=== PATIENT | female | born 1985 | race Caucasian/White ===

== ENCOUNTER 2020-04-09 12:59 | Emergency (ER) | payer BC ==
[2020-04-09 13:50] LABS: Basophils # (A) 0.1 k/uL (0-0.2); Basophils % (A) 1 %; Eosinophils # (A) 0.2 k/uL (0-0.7); Eosinophils % (A) 3 %; HCT 40.1 % (34.0-46.0); HGB 13.8 gm/dL (11.4-16.0); Lymphocytes # (A) 2.2 k/uL (1.0-4.8); Lymphocytes % (A) 29 %; MCH 28.7 pg (25.0-35.0); MCHC 34.5 g/dL (31.0-37.0); MCV 83.1 fL (80.0-100.0); Mean Platelet Volume 6.6; Monocytes # (A) 0.4 k/uL (0-1.0); Monocytes % (A) 5 %; Neutrophils # (A) 4.6 k/uL (1.3-7.7); Neutrophils % (A) 60 %; Platelet Count 421 k/uL (150-450); RBC 4.82 m/uL (3.80-5.40); RDW 12.8 % (11.5-15.5); WBC 7.7 k/uL (3.8-10.6)
[2020-04-09 13:57] LABS: ALT 15 U/L (4-34); AST 22 U/L (14-36); African American GFR (CKD) >90 (>60 ml/min/1.73 sqM); Albumin 4.9 g/dL (3.5-5.0); Alkaline Phosphatase 71 U/L (38-126); Amylase 60 U/L (30-110); Anion Gap 7 mmol/L; Blood Urea Nitrogen 7 mg/dL (7-17); Calcium 9.6 mg/dL (8.4-10.2); Carbon Dioxide 24 mmol/L (22-30); Chloride 109 mmol/L (98-107); Glucose 99 mg/dL (74-99); Lipase 164 U/L (23-300); Non-African American GFR(CKD) >90 (>60 ml/min/1.73 sqM); Potassium 4.4 mmol/L (3.5-5.1); Sodium 140 mmol/L (137-145); Total Bilirubin 0.5 mg/dL (0.2-1.3); Total Protein 8.6 g/dL (6.3-8.2)
--- NOTE | 2020-04-09 14:08 | ED ---
Abdominal Pain HPI - General Source: patient Mode of arrival: ambulatory Limitations: no limitations <Lorene Andres - Last Filed: 04/09/20 15:24> <Norma Melara - Last Filed: 04/10/20 12:13> - General Chief Complaint: Abdominal Pain Stated Complaint: gallbladder pain Time Seen by Provider: 04/09/20 13:09 - History of Present Illness Initial Comments: 34-year-old female presenting today for chief complaint of right upper quadrant/epigastric abdominal pain. Patient states the past year she is been struggling with what she describes as gallbladder pain. She states she is scheduled for an MRCP with Dr. Lucero Sunday. Patient states that last night she was eating foods that are outside of her typical diet for her gallbladder she states she had more dairy products. Patient states the pain began around 2 AM the upper quadrant patient denies any associated nausea vomiting fevers with this pain but states sometimes she has associated nausea or vomiting. Patient denies black tarry stools or bloody stools. Patient denies a known history of peptic ulcer. Patient denies any chest pain shortness of breath. Deep inspiration. She denies any upper respiratory symptoms. Patient has no additional complaints upon arrival she appears nontoxic (Lorene Andres) - Related Data Home Medications Medication Instructions Recorded Confirmed Ibuprofen [Motrin Ib] 800 mg PO Q8H PRN 04/09/20 04/09/20 Omeprazole 20 mg PO DAILY 04/09/20 04/09/20 Allergies Allergy/AdvReac Type Severity Reaction Status Date / Time sulfamethoxazole AdvReac Nausea Verified 04/09/20 14:08 [From Bactrim] trimethoprim [From Bactrim] AdvReac Nausea Verified 04/09/20 14:08 Review of Systems ROS Other: All systems not noted in ROS Statement are negative. <Lorene Andres - Last Filed: 04/09/20 15:24> ROS Other: All systems not noted in ROS Statement are negative. <Norma Melara - Last Filed: 04/10/20 12:13> ROS Statement: Those systems with pertinent positive or pertinent negative responses have been documented in the HPI. Past Medical History Past Medical History: GERD/Reflux History of Any Multi-Drug Resistant Organisms: None Reported Past Surgical History: Adenoidectomy, Tonsillectomy Past Psychological History: Anxiety, Depression Smoking Status: Never smoker Past Alcohol Use History: None Reported Past Drug Use History: None Reported <Lorene Andres - Last Filed: 04/09/20 15:24> General Exam Limitations: no limitations <Lorene Andres - Last Filed: 04/09/20 15:24> - General Exam Comments Initial Comments: General: The patient is awake and alert, in no distress Eye: +3 mm pupils are equal, round and reactive to light, extra-ocular movements are intact. No nystagmus. There is normal conjunctiva bilaterally. No signs of icterus. Cardiovascular: There is a regular rate and rhythm. No murmur, rub or gallop is appreciated. Respiratory: Lungs are clear to auscultation, respirations are non-labored, breath sounds are equal. No wheezes, stridor, rales, or rhonchi. Gastrointestinal: Soft, non-distended, mild-moderate RUQ/epigastric tenderness, (-) murphys sign, abdomen without masses or organomegaly noted. There is no rebound or guarding present. Musculoskeletal: Normal ROM, no tenderness. Strength 5/5. Sensation intact. Pulses equal bilaterally 2+. Neurological: A&O x 3. CN II-XII intact grossly, There are no obvious motor or sensory deficits. Coordination appears grossly intact. Speech is normal. Skin: Skin is warm and dry and no rashes or lesions are noted. Psychiatric: Cooperative, appropriate mood & affect, normal judgment. (Lorene Andres) Course Vital Signs 04/09/20 04/09/20 13:01 15:04 Temperature 98.3 F 97.8 F Pulse Rate 98 78 Respiratory 18 16 Rate Blood Pressure 140/83 128/78 O2 Sat by Pulse 100 98 Oximetry Medical Decision Making - Lab Data Result diagrams: 04/09/20 13:28 04/09/20 13:28 <Lorene Andres - Last Filed: 04/09/20 15:24> - Lab Data Result diagrams: 04/09/20 13:28 04/09/20 13:28 <Norma Melara - Last Filed: 04/10/20 12:13> - Medical Decision Making RUQ pain/epigastric. pt has known GB disease. Ate more fatty foods than usual last night. Lipase (-). no labs concerning for biliary disease. pt ast/alt within reasonable limits. US gallstones no acute infectious findings. pain controlled. MRCP scheduled for sunday. recommended f/u with general surgery return for worsening pain. Discussed case wtih Ed Melara who is agreeable to care plan of discharge with PCP/general surgery f/u. (Lorene Andres) I was available for consultation in the emergency department. The history and physical exam were done by the midlevel provider. I was consulted for this patients care. I reviewed the case with the midlevel provider and based on their presentation of the patient, I agree with the assessment, medical decision making and plan of care as documented. Chart was dictated using [employer] dictation software. Attempts were made to correct any dictation errors however some typographical errors may persist. Patient was seen during a national state of emergency due to the Covid-19 pandemic. (Norma Melara) - Lab Data Lab Results 04/09/20 04/09/20 04/09/20 Range/Units 13:28 13:28 13:28 WBC 7.7 (3.8-10.6) k/uL RBC 4.82 (3.80-5.40) m/uL Hgb 13.8 (11.4-16.0) gm/dL Hct 40.1 (34.0-46.0) % MCV 83.1 (80.0-100.0) fL MCH 28.7 (25.0-35.0) pg MCHC 34.5 (31.0-37.0) g/dL RDW 12.8 (11.5-15.5) % Plt Count 421 (150-450) k/uL MPV 6.6 Neutrophils % 60 % Lymphocytes % 29 % Monocytes % 5 % Eosinophils % 3 % Basophils % 1 % Neutrophils # 4.6 (1.3-7.7) k/uL Lymphocytes # 2.2 (1.0-4.8) k/uL Monocytes # 0.4 (0-1.0) k/uL Eosinophils # 0.2 (0-0.7) k/uL Basophils # 0.1 (0-0.2) k/uL Sodium 140 (137-145) mmol/L Potassium 4.4 (3.5-5.1) mmol/L Chloride 109 H (98-107) mmol/L Carbon Dioxide 24 (22-30) mmol/L Anion Gap 7 mmol/L BUN 7 (7-17) mg/dL Creatinine 0.75 (0.52-1.04) mg/dL Est GFR (CKD-EPI)AfAm >90 (>60 ml/min/1.73 sqM) Est GFR (CKD-EPI)NonAf >90 (>60 ml/min/1.73 sqM) Glucose 99 (74-99) mg/dL Plasma Lactic Acid Domenic (0.7-2.0) mmol/L Calcium 9.6 (8.4-10.2) mg/dL Total Bilirubin 0.5 (0.2-1.3) mg/dL AST 22 (14-36) U/L ALT 15 (4-34) U/L Alkaline Phosphatase 71 (38-126) U/L Total Protein 8.6 H (6.3-8.2) g/dL Albumin 4.9 (3.5-5.0) g/dL Amylase 60 (30-110) U/L Lipase 164 (23-300) U/L Urine Color Yellow Urine Appearance Cloudy H (Clear) Urine pH 6.0 (5.0-8.0) Ur Specific Antonito 1.016 (1.001-1.035) Urine Protein Trace H (Negative) Urine Glucose (UA) Negative (Negative) Urine Ketones Negative (Negative) Urine Blood Large H (Negative) Urine Nitrite Negative (Negative) Urine Bilirubin Negative (Negative) Urine Urobilinogen <2.0 (<2.0) mg/dL Ur Leukocyte Esterase Large H (Negative) Urine RBC 1 (0-5) /hpf Urine WBC 7 H (0-5) /hpf Ur Squamous Epith Cells 6 H (0-4) /hpf Amorphous Sediment Rare H (None) /hpf Urine Bacteria Occasional H (None) /hpf Hyaline Casts 1 (0-2) /lpf Urine Mucus Occasional H (None) /hpf 04/09/20 Range/Units 13:28 WBC (3.8-10.6) k/uL RBC (3.80-5.40) m/uL Hgb (11.4-16.0) gm/dL Hct (34.0-46.0) % MCV (80.0-100.0) fL MCH (25.0-35.0) pg MCHC (31.0-37.0) g/dL RDW (11.5-15.5) % Plt Count (150-450) k/uL MPV Neutrophils % % Lymphocytes % % Monocytes % % Eosinophils % % Basophils % % Neutrophils # (1.3-7.7) k/uL Lymphocytes # (1.0-4.8) k/uL Monocytes # (0-1.0) k/uL Eosinophils # (0-0.7) k/uL Basophils # (0-0.2) k/uL Sodium (137-145) mmol/L Potassium (3.5-5.1) mmol/L Chloride (98-107) mmol/L Carbon Dioxide (22-30) mmol/L Anion Gap mmol/L BUN (7-17) mg/dL Creatinine (0.52-1.04) mg/dL Est GFR (CKD-EPI)AfAm (>60 ml/min/1.73 sqM) Est GFR (CKD-EPI)NonAf (>60 ml/min/1.73 sqM) Glucose (74-99) mg/dL Plasma Lactic Acid Domenic 0.8 (0.7-2.0) mmol/L Calcium (8.4-10.2) mg/dL Total Bilirubin (0.2-1.3) mg/dL AST (14-36) U/L ALT (4-34) U/L Alkaline Phosphatase (38-126) U/L Total Protein (6.3-8.2) g/dL Albumin (3.5-5.0) g/dL Amylase (30-110) U/L Lipase (23-300) U/L Urine Color Urine Appearance (Clear) Urine pH (5.0-8.0) Ur Specific Antonito (1.001-1.035) Urine Protein (Negative) Urine Glucose (UA) (Negative) Urine Ketones (Negative) Urine Blood (Negative) Urine Nitrite (Negative) Urine Bilirubin (Negative) Urine Urobilinogen (<2.0) mg/dL Ur Leukocyte Esterase (Negative) Urine RBC (0-5) /hpf Urine WBC (0-5) /hpf Ur Squamous Epith Cells (0-4) /hpf Amorphous Sediment (None) /hpf Urine Bacteria (None) /hpf Hyaline Casts (0-2) /lpf Urine Mucus (None) /hpf Disposition Is patient prescribed a controlled substance at d/c from ED?: No Time of Disposition: 14:32 <HussaintianaLorene Paramjit - Last Filed: 04/09/20 15:24> <Erin Melaraah Heather - Last Filed: 04/10/20 12:13> Clinical Impression: RUQ pain, Epigastric abdominal pain, Gall stones Disposition: HOME SELF-CARE Condition: Good Instructions (If sedation given, give patient instructions): Gallstones (ED), Low Fat Diet (ED), Abdominal Pain (ED) Additional Instructions: Please use medication as discussed. Please follow-up with general surgeon tomorrow as scheduled. Please return to emergency room if the symptoms increase or worsen or for any other concerns. Referrals: Efrain Wilks MD [Primary Care Provider] - 1-2 days Mal Bird MD [Medical Doctor] - 1-2 days
[2020-04-09] MEDS: HYDROmorphone 0.5 MG/0.5 ML SYRINGE IVP STA (14:10)
[2020-04-09] MEDS: ONDANSETRON 4 MG/2 ML VIAL IVP STA (14:10)
[2020-04-09] MEDS: SODIUM CHLORIDE 0.9% 500 ML 500 ML IV ONE (14:10)
[2020-04-09 14:15] LABS: Amorphous Sediment,Urine Rare /hpf; Appearance,Urine Cloudy (Clear); Bacteria,Urine Occasional /hpf; Bilirubin,Urine Negative (Negative); Blood,Urine Large (Negative); Color,Urine Yellow; Glucose,Urine (UA) Negative (Negative); Hyaline Casts,Urine 1 /lpf (0-2); Ketones,Urine Negative (Negative); Leukocyte Esterase,Urine Large (Negative); Mucus,Urine Occasional /hpf; Nitrite,Urine Negative (Negative); Protein,Urine Trace (Negative); RBC,Urine 1 /hpf (0-5); Specific Gravity,Urine 1.016 (1.001-1.035); Squamous Epithelial Cell,Urine 6 /hpf (0-4); Urobilinogen,Urine <2.0 mg/dL (<2.0); WBC,Urine 7 /hpf (0-5)
--- NOTE | 2020-04-09 14:27 | US ---
EXAMINATION TYPE: US abdomen limited DATE OF EXAM: 04/09/2020 COMPARISON: NONE CLINICAL HISTORY: ruq pain. epigastric pain, RUQ pain EXAM MEASUREMENTS: Liver Length: 13.9 cm Gallbladder Wall: 0.3 cm CBD: 0.3 cm Right Kidney: 10.1 x 4.4 x 4.8 cm *technical limitations due to patient's body habitus and large amount of overlying bowel content Pancreas: Obscured by bowel gas Liver: appears wnl Gallbladder: 2 stones noted, 1 near neck. Cholesterol stones could be considered given the more supe rior location of these. Evidence for sonographic Jenkins's sign: no CBD: appears wnl as visualized Right Kidney: no evidence of hydronephrosis IMPRESSION: 1. Cholelithiasis.
[2020-04-09 15:05] VITALS: BP 128/78; PULSE 78; RESP 16; TEMP 97.8
== END 2020-04-09 15:04 | disposition home or self-care (01) ==
LOC: EC 12:59
DX: K80.20 Calculus of gallbladder without cholecystitis without obstruction (principal); K21.9 Gastro-esophageal reflux disease without esophagitis; Z79.899 Other long term (current) drug therapy; Z88.1 Allergy status to other antibiotic agents; Z88.2 Allergy status to sulfonamides; Z90.89 Acquired absence of other organs
CPT/HCPCS: 36415; 80053; 82150; 83605; 83690; 85025; 81001; 76705; 99284; 96374; 96375; J2405; J1170

== ENCOUNTER → 2020-04-12 | Outpatient (CLI) | payer BC ==
--- NOTE | 2020-04-12 08:35 | MR ---
EXAMINATION TYPE: MR MRCP DATE OF EXAM: 04/12/2020 COMPARISON: Ultrasound abdomen limited 3 days ago HISTORY: Dilated bile duct Standard multiplanar, multisequence MRI departmental protocol Multiplanar, multisequence images of the abdomen were acquired. Diffusion weighted imaging was perfor med. FINDINGS: Liver/gallbladder/pancreas/biliary system: Liver remains normal in size without concerning solid or c ystic mass identified. Pancreas also is normal in size without concerning solid or cystic mass. Gallb ladder is more contracted in appearance on current study with intraluminal 9 mm gallstone coronal rohit ge 17 and larger gallstone likely lodged in gallbladder neck measuring 12 mm coronal image 17. Mild t o minimal gallbladder wall thickening measuring just over 3 mm. No surrounding ascites. MRCP imaging shows no pancreatic ductal dilatation, pancreatic duct is poorly visualized. There is no suspicious i ntrahepatic or extrahepatic biliary dilatation. Other: Lung bases are grossly clear. Spleen and both adrenal glands appear within normal limits. No c oncerning renal masses or hydronephrosis. No suspicious bowel dilatation. No intra-abdominal ascites. Visualized osseous structures are intact. IMPRESSION: Confirmation of 2 intraluminal gallstones. Larger stone is likely lodged in gallbladder n betina. Gallbladder wall may be minimally thickened. No additional secondary findings to suggest acute c holecystitis. In patient with right upper quadrant pain it is not entirely excluded. No biliary dilat ation noted.
== END | disposition home or self-care (01) ==
LOC: RADMRIMAIN 06:51
PROVIDERS: ATTEND Surgery
DX: K80.20 Calculus of gallbladder without cholecystitis without obstruction (principal)
CPT/HCPCS: 74181

== ENCOUNTER 2020-04-26 09:32 | Day surgery (SDC) | payer BC ==
[2020-04-21 15:52] VITALS: BMI 37.9
[~2020-04-26 09:32] MED LIST: ACETAMINOPHEN TAB 500 MG TAB PO PRN; DEXAMETHASONE SOD PHOSPHATE 4 MG/ML 1 ML VIAL IV ONE; HEPARIN SODIUM,PORCINE 5,000 UNIT/ML 1 ML VIAL SQ PRN; HYDROmorphone 0.5 MG/0.5 ML SYRINGE IVP PRN; LACTATED RINGERS 1,000 ML IV SCH; LIDOCAINE 1% (10MG/ML) FOR IV START INTRADERMA PRN; ONDANSETRON 4 MG/2 ML VIAL IVP ONE; SCOPOLAMINE 1.5MG/72HR PATCH TRANSDERM ONE
[2020-04-26] MEDS ORDERED: LACTATED RINGERS 1,000 ML IV ONE ×3 (09:51→12:31)
[2020-04-26] MEDS ORDERED: MIDAZOLAM 2 MG/2 ML VIAL IVP ONE (10:47)
[2020-04-26] MEDS ORDERED: MIDAZOLAM 2 MG/2 ML VIAL ONE (11:42)
[2020-04-26] MEDS ORDERED: PROPOFOL 10 MG/ML 20 ML VIAL IV ONE (11:42)
[2020-04-26] MEDS ORDERED: HYDROmorphone (PF) 1 MG/ML ONE (11:42)
[2020-04-26] MEDS ORDERED: NEOSTIGMINE 1 MG/ML 10 ML VIAL ONE (11:42)
[2020-04-26] MEDS ORDERED: GLYCOPYRROLATE 0.2 MG/ML 2 ML VIAL ONE (11:42)
[2020-04-26] MEDS ORDERED: ROCURONIUM 10 MG/ML (10 ML VIAL) IV ONE (11:42)
[2020-04-26] MEDS ORDERED: SUCCINYLCHOLINE CHLORIDE VIAL 200 MG/10 ML VIAL IV ONE (11:42)
[2020-04-26] MEDS ORDERED: LIDOCAINE 1% INJ 10MG/ML (20 ML MDV) ONE (11:42)
[2020-04-26] MEDS ORDERED: fentaNYL (PF) 50 MCG/ML 2 ML AMP ONE (11:42)
[2020-04-26] MEDS ORDERED: BUPIVACAINE (PF) 0.25% 30 ML VIAL SQ ONE ×2 (12:12)
--- NOTE | 2020-04-26 13:03 | P.OP ---
Date of Procedure: 04/26/20 Procedure(s) Performed: PREOPERATIVE DIAGNOSIS: Chronic cholecystitis POSTOPERATIVE DIAGNOSIS: Same PROCEDURE: Laparoscopic cholecystectomy SURGEON: Pelon EBL: Minimal see anesthesia record ANESTHESIA: Gen. COMPLICATIONS: None OPERATIVE PROCEDURE: The patient was brought and placed on the operating room table in the supine position. The patient was placed under general anesthesia at that time. The abdomen was prepped and draped in the usual sterile fashion. A small vertical infraumbilical incision was made. The fascia was grasped with the Judith forceps. The fascia was retracted anteriorly. The Veress needle was advanced into the peritoneal cavity. The saline drop test was normal. Insufflation took place up to 15 mmHg. A 5 mm optical trocar was advanced and the peritoneal cavity. 2 additional 5 mm trochars were placed in the right upper quadrant under direct visualization. A 12 mm trocar was advanced into the epigastric incision site. The gallbladder was retracted superiorly and laterally. The peritoneum overlying the infundibulum was bluntly dissected. The patient had a moderate sized stone impacted in the gallbladder neck. The patient's cystic duct was visualized. The junction between the cystic duct common and hepatic duct was identified. The cystic duct was then divided after placement of 3 12 mm clips on the patient's side and one on the specimen side. The cystic artery was identified and clipped as well. A small vessel was seen along the gallbladder fossa and clipped as well. The gallbladder was then removed from the liver bed using electrocautery. The gallbladder was then removed from the epigastric trocar site with an Endo Catch bag. The gallbladder fossa was irrigated with saline. There was no evidence of any bleeding or biliary drainage seen. The fascia at the 12 millimeter site was closed using a Franck-Jann 0 Vicryl stitch. The trochars were then removed. The skin at all 4 sites was closed using a 4-0 Monocryl stitch. Skin glue was utilized on the incision sites. At the end of this procedure the sponge and needle counts were correct. DISPOSITION: Stable to the recovery room
[2020-04-26 13:08] VITALS: RESP 16; TEMP 97.1
[2020-04-26 14:52] VITALS: BP 131/78; PULSE 73
[2020-04-26] MEDS ORDERED: IBUPROFEN 600 MG TAB PO SCH (16:00)
[2020-04-26] MEDS ORDERED: ACETAMINOPHEN TAB 325 MG TAB PO SCH (18:00)
== END 2020-04-26 15:30 | disposition home or self-care (01) ==
LOC: OR 09:32
PROVIDERS: ATTEND Surgery
DX: K80.12 Calculus of gallbladder with acute and chronic cholecystitis without obstruction (principal); F41.9 Anxiety disorder, unspecified; F32.9 Major depressive disorder, single episode, unspecified; K21.9 Gastro-esophageal reflux disease without esophagitis; E66.9 Obesity, unspecified; Z68.37 Body mass index [BMI] 37.0-37.9, adult; L98.9 Disorder of the skin and subcutaneous tissue, unspecified; Z98.890 Other specified postprocedural states; Z79.899 Other long term (current) drug therapy; Z88.2 Allergy status to sulfonamides
CPT/HCPCS: 81025; 88304; 47562; J2250; J0330; J1100; J2710; J0690; J2405; J2001; J3010; J1170 ×2; J2704

== ENCOUNTER 2021-06-29 08:54 | Emergency (ER) | payer BC ==
[2021-06-29 09:05] VITALS: BP 132/91; PULSE 86; RESP 18; TEMP 97.4
[2021-06-29] MEDS ORDERED: OXYMETAZOLINE 0.05% NASL SPRAY 1 SPRAY BOTTLE NASAL STA (09:13)
--- NOTE | 2021-06-29 09:43 | ED ---
ENT HPI - General Chief complaint: ENT Stated complaint: Nose Bleed Time Seen by Provider: 06/29/21 09:12 Source: patient, RN notes reviewed Mode of arrival: ambulatory Limitations: no limitations - History of Present Illness Initial comments: This is a 35-year-old female presents emergency Department with chief complaint of epistaxis. Patient states his started this morning. She's had recurrent issues of recent. Patient states she is concerned that she's been diagnosed with sinus cyst. Patient denies any trauma but she states that she is crying this morning, she blew her nose and bleeding started. She has had some clots. Patient has a headache dizziness no facial pain no other complaints. - Related Data Home Medications Medication Instructions Recorded Confirmed No Known Home Medications 06/29/21 06/29/21 Allergies Allergy/AdvReac Type Severity Reaction Status Date / Time sulfamethoxazole AdvReac Nausea Verified 06/29/21 10:00 [From Bactrim] trimethoprim [From Bactrim] AdvReac Nausea Verified 06/29/21 10:00 Review of Systems ROS Statement: Those systems with pertinent positive or pertinent negative responses have been documented in the HPI. ROS Other: All systems not noted in ROS Statement are negative. Past Medical History Past Medical History: GERD/Reflux Additional Past Medical History / Comment(s): hx pleurisy, gall bladder pain. History of Any Multi-Drug Resistant Organisms: None Reported Past Surgical History: Adenoidectomy, Cholecystectomy, Tonsillectomy Additional Past Surgical History / Comment(s): tongue clipped (5 yrs old), T & A (5 yrs old) Past Anesthesia/Blood Transfusion Reactions: No Reported Reaction, Motion Sickness Past Psychological History: Anxiety, Depression Smoking Status: Never smoker Past Alcohol Use History: None Reported Past Drug Use History: None Reported - Past Family History Mother Family Medical History: Thyroid Disorder General Exam Limitations: no limitations General appearance: alert, in no apparent distress Head exam: Present: atraumatic, normocephalic, normal inspection Eye exam: Present: normal appearance, PERRL, EOMI. Absent: scleral icterus, conjunctival injection, periorbital swelling ENT exam: Present: mucous membranes moist, other (Dry blood in the right nare). Absent: normal exam, normal oropharynx (Blood noted in the posterior pharynx) Neck exam: Present: normal inspection. Absent: tenderness, meningismus, lymphadenopathy Respiratory exam: Present: normal lung sounds bilaterally. Absent: respiratory distress, wheezes, rales, rhonchi, stridor Cardiovascular Exam: Present: regular rate, normal rhythm, normal heart sounds. Absent: systolic murmur, diastolic murmur, rubs, gallop, clicks Course Vital Signs 06/29/21 09:01 Temperature 97.4 F L Pulse Rate 86 Respiratory 18 Rate Blood Pressure 132/91 O2 Sat by Pulse 100 Oximetry Medical Decision Making - Medical Decision Making Patient had no recurrent bleeding after Afrin patient was observed for a long period of time patient feels comfortable discharged with follow-up with ENT. Disposition Clinical Impression: Epistaxis Disposition: HOME SELF-CARE Condition: Stable Instructions (If sedation given, give patient instructions): Nosebleed (ED) Additional Instructions: Please return to the Emergency Department if symptoms worsen or any other concerns. Is patient prescribed a controlled substance at d/c from ED?: No Referrals: Efrain Wilks MD [Primary Care Provider] - 1-2 days Time of Disposition: 11:01
== END 2021-06-29 11:16 | disposition home or self-care (01) ==
LOC: EC 08:54
DX: R04.0 Epistaxis (principal); Z88.2 Allergy status to sulfonamides
CPT/HCPCS: 99283

== ENCOUNTER → 2024-03-19 | Outpatient (CLI) | payer OTHER ==
[2024-03-19 10:35] LABS: HCT 39.5 % (37.2-46.3); HGB 13.3 g/dL (12.0-15.0); MCH 29.8 pg (27.0-32.0); MCHC 33.7 g/dL (32.0-37.0); MCV 88.4 FL (80.0-97.0); NRBC Per 100 WBC 0 X 10*3/uL (0.00-0.01); Platelet Count 339 X 10*3/uL (140-440); RBC 4.47 X 10*6/uL (4.10-5.20); RDW 12.6 % (11.5-14.5); WBC 7.03 X 10*3/uL (4.50-10.00)
[2024-03-19 10:36] LABS: Basophils # (A) 0.04 X 10*3/uL (0.00-0.10); Basophils % (A) 0.6 %; Eosinophils % (A) 1.4 %; Lymphocytes % (A) 28.4 %; Monocytes # (A) 0.54 X 10*3/uL (0.20-1.00); Monocytes % (A) 7.7 %; Neutrophils # (A) 4.33 X 10*3/uL (1.80-7.70); Neutrophils % (A) 61.6 %
[2024-03-19 11:17] LABS: BUN/Creat Ratio 19.12 Ratio (12.00-20.00); Blood Urea Nitrogen 15.3 mg/dL (9.0-27.0); Carbon Dioxide 23.2 mmol/L (21.6-31.8); Chloride 101 mmol/L (96-109); Chol/HDL Ratio 3.36 Ratio; Glucose 90 mg/dL (70-110); Iron 70 UG/DL (50-170); LDL Cholesterol,Calculated 120.7 mg/dL (0.0-131.0); Potassium 5.1 mmol/L (3.5-5.5); Sodium 136 mmol/L (135-145); Total Iron Binding Capacity 335 UG/DL (228-460); VLDL Calculation 7.76 mg/dL (5.00-40.00)
[2024-03-19 11:18] LABS: ALT 14 U/L (8-44); AST 17 U/L (13-35); Albumin 4.6 g/dL (3.8-4.9); Albumin/Globulin Ratio 1.59 Ratio (1.60-3.17); Alkaline Phosphatase 63 U/L (41-126); Globulin 2.9 g/dL (1.6-3.3); T4, Free (Free Thyroxine) 1.24 ng/dL (0.80-1.80); Total Bilirubin 0.5 mg/dL (0.3-1.2); Total Protein 7.5 g/dL (6.2-8.2)
== END | disposition home or self-care (01) ==
LOC: LABWHC1 07:06
PROVIDERS: ATTEND Family Medicine
DX: Z00.00 Encounter for general adult medical examination without abnormal findings (principal); R53.83 Other fatigue
CPT/HCPCS: 36415; 80053; 80061; 82306; 82607; 82728; 82746; 83036; 83540; 83550; 84439; 84443; 85025